=== PATIENT | female | born 1990 | race African-American/Black ===

== ENCOUNTER 2016-12-03 20:05 | Emergency (ER) | payer OTHER ==
[~2016-12-03] VITALS: Ht 172.7 cm; Wt 72.6 kg
[~2016-12-03 20:05] MED LIST: CIPROFLOXACIN500 M1 PO; NORCO 5-325 TA1 EACH PO; TESSALON200 MG PO; ZPAK PO
[2016-12-03 20:25] LABS: URINE BLOOD NEGATIVE (Negative); URINE COLOR YELLOW; URINE GLUCOSE-RANDOM* NEGATIVE (Negative); URINE KETONES 1+ (Negative); URINE NITRITE NEGATIVE (Negative); URINE PROTEIN (DIPSTICK) TRACE (Negative); URINE SPECIFIC GRAVITY 1.025 (1.003-1.035)
[2016-12-03 20:26] LABS: ICTOTEST (BILI CONFIRMATORY) Negative (Negative); URINE BILIRUBIN NEGATIVE (Negative)
[2016-12-03 20:33] LABS: AMORPHOUS URATES Many /LPF (None Seen); CASTS None Seen /LPF (None Seen); SQUAMOUS >10 Many /LPF (0-3); URINE RBC 0-2 Rare /HPF (0-2)
[2016-12-03 20:42] LABS: ABSOLUTE NEUTROPHILS 9.5 thou/uL (1.4-8.2); BASOPHILS 0.3 % (0.0-2.0); EOSINOPHILS 0.9 % (0.0-3.0); HEMATOCRIT 38.8 % (37.0-47.0); LYMPHOCYTES 13.3 % (24.0-44.0); MCH 31.2 pg (26.0-34.0); MCHC 33.4 g/dL (28.0-37.0); MCV 93.5 fL (80.0-100.0); MONOCYTES 7.6 % (1.0-8.0); PLATELET COUNT 281 thou/uL (150-400); POLYS 77.9 % (36.0-66.0); RBC 4.15 mil/uL (4.20-5.00); RDW 20.9 % (10.5-14.5); WBC 12.2 thou/uL (4.0-11.0)
[2016-12-03 20:43] LABS: MANUAL DIFF NO
[2016-12-03 20:53] LABS: CALCIUM 9.9 mg/dL (8.5-10.1); CREATININE 0.9 mg/dL (0.6-1.0)
[2016-12-03 21:01] LABS: ALBUMIN 3.8 g/dL (3.4-5.0); TOTAL BILIRUBIN 0.5 mg/dL (<0.1-1.0); TOTAL PROTEIN 7.2 g/dL (6.4-8.2)
[2016-12-03] MEDS ORDERED: CIPRO500 MG PO (22:09)
[2016-12-03] MEDS ORDERED: FLAGYL500 MG PO (22:09)
[2016-12-03] MEDS ORDERED: SENNA8.6 MG PO (22:10)
[2016-12-03] MEDS ORDERED: ONDANSETRON HCL4 M2 PO (22:14)
[2016-12-03] MEDS ORDERED: NORCO 5-325 TA1 EACH PO (22:20)
[2016-12-03 22:48] VITALS: BP 142/90
== END 2016-12-03 22:51 | disposition home or self-care (01) ==
LOC: ER 20:05
PROVIDERS: Physician Assistant
DX: K85.90 Acute pancreatitis without necrosis or infection, unspecified (principal); E87.6 Hypokalemia; N39.0 Urinary tract infection, site not specified; F17.210 Nicotine dependence, cigarettes, uncomplicated; F10.99 Alcohol use, unspecified with unspecified alcohol-induced disorder; F12.10 Cannabis abuse, uncomplicated; Z88.0 Allergy status to penicillin; Z88.1 Allergy status to other antibiotic agents